=== PATIENT | female | born 1975 | race Two or more races ===

== ENCOUNTER 2025-02-04 17:09 | Emergency (ER) | payer SELFPAY ==
[~2025-02-04] VITALS: Ht 157.5 cm; Wt 55.3 kg
[2025-02-04] MEDS ORDERED: IBUPROFEN 400 MG TABLET ONE (18:24)
[2025-02-04] MEDS: IBUPROFEN 400 MG TABLET PO ONE (18:31)
[2025-02-04 19:13] VITALS: BP 114/78; TEMP 97.7; O2SAT 98
== END 2025-02-04 19:13 | disposition home or self-care (01) ==
LOC: ER 17:16 → EDBD 17:16 → ER 19:13
DX: S00.93XA Contusion of unspecified part of head, initial encounter (principal); M79.632 Pain in left forearm; M79.631 Pain in right forearm; R07.89 Other chest pain; V89.2XXA Person injured in unspecified motor-vehicle accident, traffic, initial encounter; Y93.89 Activity, other specified; Y92.89 Other specified places as the place of occurrence of the external cause; Y99.8 Other external cause status
CPT/HCPCS: 71045-TC; 73090-TC